=== PATIENT | male | born 1940 | race Caucasian/White ===

== ENCOUNTER → 2020-12-26 07:17 | Outpatient (CLI) | payer MEDICARE, SELFPAY ==
--- NOTE | 2020-12-26 07:23 | CT_ITS ---
STUDY: CT RIGHT LOWER EXTREMITY WITHOUT CONTRAST REASON FOR EXAM: Right knee osteoarthritis, surgical planning. TECHNIQUE: Transaxial CT imaging of the lower extremity was performed. Coronal and sagittal images were reformatted. Individualized dose optimization techniques were used for this CT. COMPARISON: None. FINDINGS: Knee: There are marginal osteophytes and mild joint space narrowing of the medial femorotibial compartment (coronal reconstruction 27). There are marginal osteophytes and moderately severe joint space narrowing of the mesial aspect of the lateral femorotibial compartment (coronal reconstruction 27). There are marginal osteophytes and joint space narrowing of the medial aspect of the patellofemoral compartment (axial image 275). Normal proximal tibiofibular articulation. There is a small joint effusion. The quadriceps tendon is grossly normal. There is an enthesophyte at the superior pole of the patella. The patellar tendon is grossly normal. Normal Hoffa''s fat pad. There is mild vascular calcification. Hip: There is mild subchondral cystic change of the right acetabulum. Otherwise, unremarkable right hip joint. There is prostatic calcification. Ankle: Normal tibiotalar, posterior subtalar and talonavicular articulations. There are small ossicles of the distal aspect of the medial and lateral malleoli. There is a small posterior calcaneal enthesophyte. CT/Extremity Lower without Contra IMPRESSION: Right knee osteoarthritis. Electronically Signed: Joao Arguello MD at 14:47 EDT Tel , Service support ,
== END ==
PROVIDERS: PCP Family Medicine; Visit Provider Specialist
DX: M17.11 Unilateral primary osteoarthritis, right knee (principal); M21.161 Varus deformity, not elsewhere classified, right knee
CPT/HCPCS: 73700

== ENCOUNTER → 2021-01-06 06:27 | Outpatient (CLI) | payer MEDICARE, SELFPAY ==
[2020-12-27 14:24] VITALS: BMI 25.6
--- NOTE | 2021-01-06 06:32 | ECHOD_ITS ---
Reason For Study: ARRHYTHMIA Procedure This was a 2D Doppler, Color Flow transthoracic echocardiogram. Exam performed in department. Left Ventricle Normal LV size. Left ventricular systolic function is normal. The estimated ejection fraction is 60 %. Stage 2 diastolic dysfunction. No regional wall motion abnormalities noted. Right Ventricle Normal RV size. Normal systolic function. Atria Normal left atrium. Normal right atrium. Patent foramen ovale. Mitral Valve Normal mitral valve. Tricuspid Valve Normal tricuspid valve. Mild tricuspid valve insufficiency. Pulmonary artery systolic pressure is 30 mmHg. Aortic Valve Trisinus/trileaflet aortic valve. Mild focal aortic valve calcification. Mild aortic stenosis. Pulmonic Valve Normal pulmonic valve. Great Vessels Normal aortic root. The pulmonary artery is normal size. Normal inferior vena cava. Pericardium/Pleural No pericardial effusion. Medication Performed a rapid injection of agitated mix of 9 cc saline and 1cc air to assess for atrial septal defect. MMode/2D Measurements & Calculations LVIDd: 4.5 cm IVSd: 1.0 cm LVOT diam: 2.0 cm LVIDs: 3.1 cm LVPWd: 1.0 cm RVDd: 3.7 cm FS: 30.9 % LVOT area: 3.1 cm2 Ao root diam: 3.2 cm LAV(MOD-bp): 55.2 ml LVAd ap4: 26.3 cm2 LAV(MOD-bp) Indexed: 31.2 ml/m2 LVLd ap4: 7.3 cm LAV(MOD-sp2): 51.0 ml EDV(MOD-sp4): 80.0 ml LAV(MOD-sp4): 56.1 ml EDV(sp4-el): 80.7 ml LVAs ap4: 15.2 cm2 LVLs ap4: 6.3 cm ESV(MOD-sp4): 30.7 ml ESV(sp4-el): 31.1 ml EF(MOD-sp4): 61.7 % EF(sp4-el): 61.5 % SV(MOD-sp4): 49.3 ml SV(sp4-el): 49.6 ml LA A4 area: 19.8 cm2 LA dimension(2D): 3.5 cm RA A4 area: 16.4 cm2 Time Measurements MV dec time: 0.19 sec Doppler Measurements & Calculations MV E max fernando: 85.3 cm/sec Lat Peak E' Fernando: 9.3 cm/sec Med Peak E' Fernando: 7.9 cm/sec MV A max fernando: 67.0 cm/sec E/E' lat: 9.2 E/E' med: 10.8 MV E/A: 1.3 Ao V2 max: 216.9 cm/sec LV V1 max: 115.4 cm/sec SV(LVOT): 87.0 ml Ao max P.8 mmHg LV V1 max P.3 mmHg Ao V2 mean: 140.4 cm/sec LV V1 mean P.4 mmHg Ao mean P.2 mmHg LV V1 mean: 71.5 cm/sec Ao V2 VTI: 49.8 cm LV V1 VTI: 27.9 cm HECTOR(I,D): 1.7 cm2 HECTOR(V,D): 1.7 cm2 PA V2 max: 127.5 cm/sec TR max fernando: 261.7 cm/sec TR max P.4 mmHg ECHO/Echo Complete Interpretation Summary Normal LV size. Left ventricular systolic function is normal. The estimated ejection fraction is 60 %. Stage 2 diastolic dysfunction. Pulmonary artery systolic pressure is 30 mmHg. Mild aortic stenosis. Ordering Physician: Camilo Panda Referring Physician: CAROLYN MEDINA Performed By: Mariza Saez RDCS
--- NOTE | 2021-01-06 14:52 | STRESSREP ---
Stress Test Report Pharmacologic myocardial perfusion stress test. 80-year-old man with a history of cardiac arrhythmia for preop evaluation. Stress protocol: Resting EKG demonstrates sinus bradycardia with a rate of 52 bpm. Resting blood pressure 106/68 mmHg. 0.4 mg of regadenoson was infused per usual protocol followed by rapid venous saline flush injection continuous EKG monitoring was performed. The maximum heart rate attained was 73 bpm which was 52% of max infected heart rate the maximum workload was 1 metabolic equivalent. At rest there were no ST or T wave changes noted to suggest abnormal flow reserve and at peak infusion nonspecific ST changes were noted with did not meet the criteria for ischemia. No clinical angina was noted. The final blood pressure was 108/60 mmHg. Myocardial perfusion protocol. 11.0 mCi of technetium 99m sestamibi was injected at rest. 0.4 mg of regadenoson was infused per usual protocol. At peak infusion 33.5 mCi of technetium 99m sestamibi was injected stress images were obtained stress and rest images just were reconstructed and compared in the short axis vertical long and horizontal long axis. Gated images were also obtained Perfusion SPECT analysis: Review of the stress images demonstrate normal uptake of tracer noted in all areas of the myocardium. The resting images similarly demonstrate normal uptake of tracer noted in all areas of the myocardium. No areas of reversibility are noted to suggest ischemia and no previous infarct is noted. Gated SPECT analysis: The gated ejection fraction is 69%. Conclusion: Normal pharmacologic myocardial perfusion stress test. Preserved ejection fraction.
== END ==
PROVIDERS: PCP Family Medicine; Referring Provider Internal Medicine Cardiovascular Disease; Visit Provider Internal Medicine Cardiovascular Disease
DX: R94.31 Abnormal electrocardiogram [ECG] [EKG] (principal); Z20.828 Contact with and (suspected) exposure to other viral communicable diseases
CPT/HCPCS: 78452; 87426; 93017; 93306; A9500; C9803; A4216; J2785

== ENCOUNTER 2021-01-11 10:02 | Observation (INO) | payer MEDICARE, SELFPAY ==
--- NOTE | 2020-12-27 21:25 | PCM.HP.BLA ---
History and Physical History and Physical [facility] Patient Name: Bro Weber : 1940 From: PALOMA CONTRERAS PA-C DATE OF SURGERY: 01/11/2021 SCHEDULED PROCEDURE: right total knee arthroplasty HISTORY OF PRESENT ILLNESS: Preoperative history and physical exam was performed on December 26, 2020. This is a 80-year-old male who has had ongoing pain for several years with his right knee. Patient's pain is been intermittent. He has increased pain going up and down stairs. He has difficulty with activities of daily living including shopping. 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 His pain can reach as high as a 6/10. He has increased pain with any twisting type activities. Pain is over the medial aspect of the knee. It occasionally wakes him at night. Patient has attempted conservative measures including previous corticosteroid injections with only 1-2 months of relief. He has been through 2 previous series of Visco supplementation injections with the last series giving him no relief in his symptoms. He has tripped/stumble due to the knee pain. He denies previous surgery on the right knee in the past. He has attempted [id number] Tylenol without any significant relief. After failing conservative measures and discussing all treatment options, the patient does wish to proceed with a right total knee arthroplasty. We are obtaining surgical clearance from the primary care physician Dr. Vamshi Campbell and he has also been referred to garment manufacturer Dr. Panda. Patient on EKG had bradycardia and is currently going to get worked up with echocardiogram and stress test. Depending upon those findings will determine proceeding with surgery. He denies any chest pain, shortness of breath, fevers chills, recent infections. He has medical history pertinent for hyperlipidemia, gastroesophageal reflux disease, stenosis of the left subclavian artery. REVIEW OF SYSTEMS: ROS: Const: Denies change in appetite, fever and weight change. CV: Denies chest pain, heart murmur and irregular heartbeat. Resp: Denies cough, pneumonia, shortness of breath, tuberculosis and wheezing. GI: Denies constipation, diarrhea, heartburn, nausea, rectal itching, bloody stools and vomiting. : Denies incontinence. Musculo: Reports leg swelling and trouble walking, but denies pain and weakness. Skin: Denies Raynaud's, history of shingles and tattoo. Neuro: Denies ambulatory dysfunction, dizziness, numbness/tingling and tremor. Psych: Denies anxiety, insomnia and stress. Demarcus/Lymph: Denies anemia, bleeding/bruising tendency and past transfusion. Reviewed, no changes. PAST MEDICAL HISTORY: Advance Care Plan: Other Directive, LIVING WILL PMH: Medical Problems: Arthritis, Hypercholesterolemia, Acid Reflux Accidents: None Surgical Hx: LT Arm Bypass Anesthesia Complications: None Assistive Devices: Dentures Reviewed and updated. SOCIAL HISTORY: SH: Marital: .Occupation: Retired.Work Status: Retired.Hand Dominance: Right-handed. Personal Habits: Cigarette Use: Former.Smokeless Tobacco: Former user.E-Cigarette Use: Never used.Alcohol: Occasionally.Drug Use: Denies Use.Enjoy Exercising: Never Exercises. Reviewed, no changes. VITALS: Ht: 65 Wt: 150lb Wt k.040 BMI: 25.0 BP: 118/76 Pulse: 66 Resp: 16 T: 97.7 T: 36.5C ALLERGIES: No Known Drug Allergy MEDICATIONS: Aspirin 81 81 mg 1 PO qd, Omeprazole 20 mg take 1 capsule by mouth once daily, Simvastatin 20 mg take 1 tablet by mouth nightly, Vitamin D3 50 mcg (2000 Ut) 1 by mouth every day, Zinc 50 mg 1po qday, Quercetin 250 mg 1po qday PRE-OP EXAM: General appearance:NORMAL Other: Eyes: Conjunctivae and lids: NORMAL Pupils: ERR Ears, Nose, Mouth, and Throat: NORMAL Other: Inspection of lips, teeth and gums: NORMAL Other: Neck: Examination of neck: no masses noted. Respiratory: Assessment of respiratory effort: NORMAL Other: Auscultation of lungs: clear to auscultation no wheezes, rhonchi or rales. Cardiovascular: Auscultation of heart: regular rate and rhythm, no murmurs, gallops or rubs. Exam of carotid arteries: NORMAL Other: Gastrointestinal: Exam of abdomen: soft, nontender, nondistended bowel sounds present. PHYSICAL EXAMINATION: Walks with an antalgic gait. His right knee has mild effusion. There is varus alignment which is partially correctable on exam. Tenderness to palpation along the medial joint line and mild tenderness to palpation along the lateral joint line. Crepitus with range of motion. Range of motion: Lacks 4 of extension to 100 flexion on the right and 0 extension to 120 flexion on the left. Stable to anterior/posterior drawer. Sensation intact to light touch. IMAGING STUDIES: Previous x-rays of the right knee reveal varus alignment with medial joint space narrowing, subchondral sclerosis, osteophyte formation consistent with severe stage IV tricompartmental osteoarthritis with bony erosions of the medial compartment. IMPRESSION: 1. Severe right knee osteoarthritis with varus deformity 2. Hyperlipidemia 3. Gastroesophageal reflux disease 4. Left subclavian artery stenosis 5. Bradycardia PLAN: Dr. Sage Campbell did discuss and review with the patient all treatment options including surgical versus nonsurgical options. Patient does wish to proceed with the above-stated procedure. Potential risks, benefits, and complications of the procedure were discussed in detail including but not limited to , infection, nerve and blood vessel damage, persistent pain, numbness, tingling, paresthesias, blood clot, pulmonary embolism, and requirement for possible further surgery. The patient expressed full understanding and has no further questions for the doctor. Patient does agree to proceed with the above-stated procedure and has signed the surgery consent form. We discussed the current risks associated with COVID 19. This does include the risk of exposure while in the hospital. Patient was reassured local hospitals have low infection rates and are taking all necessary precautions to avoid exposure to patients. In addition, we discussed strategies that can be used to help limit exposure including those that limit the patient's time in the hospital. Also using strategies to limit the patient's need for continued inpatient services after being discharged from the hospital. Patient was notified that we will need to comply with any screening or testing the hospital wishes to perform or that surgery may be delayed for any positive results. This dictation was created using voice recognition software. Phonetic and/or grammatical errors may exist. ___ I have re-examined the patient. There are no clinical changes since date of exam. ___ See progress notes for changes. ___ Dictated on admission Date: Time: Signature:
[2020-12-28 09:50] LABS: Magnesium 2.3 mg/dL (1.6-2.6)
[2021-01-11] VITALS (15 sets, daily range): BP systolic 102–158; BP diastolic 53–108; PULSE 56–88; RESP 16–18; TEMP 35.9–37.2; O2SAT 96–100; BMI 24.7
[2021-01-11] MEDS: Celecoxib 200 MG Capsule 400 MG PO (07:08)
[2021-01-11] MEDS: Lactated Ringers 1,000 ML 75 ML IV (07:08)
[2021-01-11] MEDS: Gabapentin 600 MG Tablet PO (07:09)
[2021-01-11] MEDS: Acetaminophen 500 MG Tablet 1000 MG PO ×3 (07:09→20:55)
[2021-01-11] MEDS: Lactated Ringers 1,000 ML 999 ML IV ×2 (07:09→10:29)
[2021-01-11 08:16] LABS: Bedside Glucose 54 mg/dL (70-110)
[2021-01-11] MEDS: Cefazolin 2 GM in 0.9% Normal Saline 100 ML IV (08:31)
[2021-01-11] MEDS: dexAMETHasone 10 MG/ML Vial IV (09:19)
--- NOTE | 2021-01-11 09:38 | PCM.OPRPT ---
Report of Operation Pre-Operative Diagnosis: Right knee primary osteoarthritis Post-Operative Diagnosis: Right knee primary osteoarthritis Surgery/Procedure Performed:: Right minimally invasive robotic total knee replacement Description of Surgical Findings:: Stable knee with good patella tracking Surgeon: Sage Campbell Type of Anesthesia: Spinal Anesthesiologist: Clayton Gracia Special Medications: 2 g Ancef, 1 g TXA at incision, 1 g TXA closure, 10 mg Decadron, joint cocktail (5 mg Duramorph, 30 mL of 0.5% Ropivicaine, 1000 units of epinephrine, 30 mg of Toradol) Specimen's removed: Bony cuts Estimated Blood Loss (mL): 35 Fluids Replaced: 500 mL crystalloid Description of Procedure: Implants used: 1. [place] size 4 triathlon cruciate retaining distal femoral press-fit component 2. Lali size 5 press-fit tritanium tibial baseplate 3. [place] X3 9 mm CS polyethylene 4. Lali X3 38 mm asymmetric patella Brief history operative indications: 80-year-old M with history of right knee osteoarthritis with radiographic findings with loss of joint space, osteophyte formation and subchondral sclerosis. Failed conservative measures as mentioned in the H&P. Discussion of total knee arthroplasty as well as risk and benefits were discussed the patient including but not limited to blood loss, DVTs, PEs, neurovascular damage, general risk of anesthesia including loss of life, and stiffness or instability were discussed with patient. Patient demonstrated understanding and was able to sign informed consent. Procedure: On the date of procedure patient's right lower extremity was marked in the preoperative area. The patient was then taken back to the operating room where the patient was placed on the table in the supine position. All bony prominences were identified a well-padded. Anesthesia assumed control of the C-spine and airway and remained controlled throughout the remainder of the procedure. A tourniquet was placed on the right upper thigh and the leg was prepped in a sterile fashion. The surgeon then scrubbed at this time .Upon reentering the room right lower extremity was draped in a standard orthopedic fashion. A timeout was then called and everyone agreed upon the side, the site, the procedure to be performed, patient's identity and antibiotics given. Esmarch bandage was used to exsanguinate the extremity and the tourniquet was placed up to 250 mmHg with the knee in flexion. A midline skin incision was made and sharp dissection was taken down through skin subcutaneous tissue and fat. The standard medial parapatellar incision was made and the patella was subluxed laterally. An Appropriate deep MCL release was done and the fat pad was resected. Our attention was then directed to the patella. The patella was everted and a flat resection was made. The knee was then flexed up in 2 femoral pins were placed inside the incision and 2 tibial pins were placed outside the incision in the medial tibia bicortically. Once this was completed the 2 checkpoints in the femur and tibia were placed. Knee was then flexed up and the bony landmarks were registered. Once this was completed knee was taken through range of motion and manually stressed allowing us to a plan for an appropriate tibial cut. The robotic arm was brought into the field sterilely and checkpoint and saw were registered. Based on the patient's deformity the tibial cut was made in 2 degrees of varus. At this time the tensioner was then placed in the joint and ligament tension was checked at 90 degrees and full extension. Based on the patient's ligamentous tension appropriate adjustments were made to the operative plan and ligament releases were done. Once we were happy with our operative plan with balanced flexion and extension gaps our attention was directed to the femur. The robot was brought into the field sterilely and registered. Posterior condylar cuts, anterior chamfer cuts and anterior cuts were appropriately made for a size 4 femur. When these were completed the saws were switched out in the distal femoral and posterior chamfer cuts were made. Protecting the soft tissue throughout this time. A size 5 tibial base plate was selected. the knee was flexed to 90 degrees and the soft tissues and posterior osteophytes were removed from the joint. 40 cc of the periarticular injection was injected into the posterior medial corner of the joint. The appropriate trials were then placed on the femur and tibia. A trial polyethylene was trialed to ensure proper balancing and stability of the knee. The appropriate tibial internal rotation was then marked with a bovie. Our attention was then directed to the patella. The lug holes were drilled and the patella trial was placed. Patellar tracking was checked and deemed appropriate. Once we were happy lug holes were drilled for the femur and trial components were removed. the tibia was subluxed and pinned into place and the keel was punched and drilled appropriately. Final components were verified and opened, and cement was mixed in a vacuum. [employer] Simplex cement was used. The wound was copiously irrigated with normal saline. When the cement was ready the components were impacted into place starting with the tibia, femur and finally cementing the patella. The trial poly component was placed and the knee was placed in full extension. All excess cement was removed in the process. Once the cement had cured the tracking, alignment and balance were verified and a size 9 mm CS polyethylene component was placed. Once the final components were placed a 3-minute dilute Betadine lavage was performed followed by an Irrisept lavage was performed and the wound was copiously irrigated with normal saline solution and the periarticular injection was given. The wound was closed in a layer jaramillo fashion using #1 vicryl interrupted sutures for the arthrotomy, 2-0 interrupted Vicryl suture for the subcuticular layer and kamini for final skin closure. A sterile compressive dressing was then placed. The patient was then awakened from anesthesia, transferred to the [facility] and transferred to the PACU for recovery. Post op plan DVT ppx: ASA 81mg BID, thigh high compression stockings Follow up: in office in 2 weeks for wound check PT: to start POD #0 at hospital, outpatient PT should be arranged. My physician optometry assistant was a vital part of this case. He was important in appropriate retraction during the case, and protection of soft tissues during bony cuts. His intimate knowledge of the case and my steps aided in safe and expedient completion of the procedure as well as appropriate position of the leg during the case. He was also vital in assisting with closure under my direct supervision. Due to the complexity of this case robotic arm was used to assist in the surgery to improve accuracy and clinical outcomes. Complications No intraoperative complications Admit VTE Documentation VTE Present on Admission: No VTE Mechan Device Prophylaxis: SCD's and Thigh High VENKATA Hose VTE Pharm Prophylaxis ordered?: Yes
--- NOTE | 2021-01-11 10:40 | RAD_ITS ---
STUDY: X-RAY - RIGHT KNEE REASON FOR EXAM: Postoperative evaluation of right total knee arthroplasty. TECHNIQUE: 2 view(s) of the knee. COMPARISON: CT images 12/26/2020. FINDINGS: There is a right total knee arthroplasty without evidence of complication. There is postoperative gas in the soft tissues and overlying skin kamini. RAD/Knee 1 or 2 Views IMPRESSION: Uncomplicated right total knee arthroplasty. Electronically Signed: Joao Arguello MD at 11:11 EDT Tel , Service support ,
[2021-01-11] MEDS: Lactated Ringers 1,000 ML 125 ML IV (10:51)
--- NOTE | 2021-01-11 14:04 | PCM.PN.HOSP ---
Documented by User: Eve Linares NP, DEPARTMENT CHAIRPERSON-C 01/11/21 14:16 Subjective Subjective Patient seen and examined. Hospitalist services consulted for medical management. Underwent right total knee replacement. Denies pain currently. States he has a medical history of hyperlipidemia and GERD. Objective Data Objective Data Vital Signs: Vital Signs Temp Pulse Resp BP Pulse Ox 98.3 F 88 18 137/67 H 98 01/11/21 12:47 01/11/21 12:47 01/11/21 12:47 01/11/21 12:47 01/11/21 12:47 Oxygen Flow Rate (L/min) 6 Oxygen Delivery Method Room Air Weight: 153 lb 0.013 oz Body Mass Index (BMI) 24.7 Intake & Output: Intake and Output for Last 24 Hours 01/09/21 01/10/21 01/11/21 23:59 23:59 23:59 Intake Total 3434 / 3434 Balance 3434 / 3434 Lab / Micro Data Labs: Laboratory Results - last 24 hr 01/11/21 06:40: POC Glucose 54 L Micro: Microbiology 12/28/20 08:57 Swab (Method) Nasal Screen MRSA/MSSA - Final Radiography Diagnostic Testing: Radiology Impression Knee X-Ray 01/11/21 10:40 IMPRESSION: Uncomplicated right total knee arthroplasty. Electronically Signed: Joao Arguello MD at 11:11 EDT Tel , Service support , Physical Exam Const alert, oriented x3 and no apparent distress Orientation / Consciousness: awake, oriented to person, oriented to place and oriented to time HEENT normocephalic and moist oral mucous membranes Eyes PERRL, EOMs intact bilaterally and conjunctivae normal Neck no lymphadenopathy Resp normal respiratory effort and clear to auscultation bilaterally Cardio regular rate, regular rhythm and no murmurs Peripheral Pulses: pulses 2+ throughout GI normal to inspection, nondistended, normoactive bowel sounds, non-tender and non-distended Extremity normal to inspection Skin no rashes or lesions noted Skin Narrative: Postop dressing intact. Lesions: no lesions Rashes: no rashes Trauma: no lacerations or abrasions Neuro CN's II-XII intact bilaterally, no focal motor deficits, no sensory deficits noted and deep tendon reflexes 2+ bilaterally Psych mental status grossly normal and affect normal Assessment & Plan Assessment/Plan (1) Hyperlipidemia: PLAN: 1. Right knee osteoarthritis status post right total knee replacement-management per Ortho. PT/OT. As needed pain regimen. 2. Abnormal EKG-noted during preop testing. Underwent stress test which was negative for ischemia, gated ejection fraction 69%. Echocardiogram demonstrated an EF of 60%, stage II diastolic dysfunction, mild aortic stenosis, pulmonary artery systolic pressure 30 mmHg. Cleared by cardiology as outpatient. 3. Hyperlipidemia-continue statin. 4. GERD-continue PPI. DVT prophylaxis-SCDs, pharmacologic prophylaxis per surgery This patient was seen by RUTHY Larson under the supervision of Dr. Hairston. Documented by User: Dr. Caty Hairston MD 01/11/21 15:59 Charges/Coding Visit Charges Office Visits / Consults: [id number] OV L4 Est
--- NOTE | 2021-01-11 14:31 | PCM.PN.HOSP ---
Subjective Subjective Bro Weber is an 80-year-old male who presented to [facility] for an elective minimally invasive right total knee arthroplasty. He had a preoperative stress test that was normal and a preoperative echocardiogram that showed an EF of 60%, stage II diastolic dysfunction, mild aortic stenosis and pulmonary artery systolic pressure of 30 mmHg on 01/06/2021. The patient evidently has been having an ongoing issues with his right knee for several years. The pain was increasing with stairs both a sent and descent and has progressed to the point where he has difficulties with ADLs and IADLs. 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 He did attempted conservative measures with corticosteroid injections, viscosupplementation injections, and [id number] Tylenol for pain relief. After failing conservative measures he elected for a right total knee arthroplasty. Patient states he is feeling well and currently not having any pain. His is at the bedside and is concerned that he will probably overdo it given the fact that he is very active at baseline. Objective Data Objective Data Vital Signs: Vital Signs Temp Pulse Resp BP Pulse Ox 98.3 F 88 18 137/67 H 98 01/11/21 12:47 01/11/21 12:47 01/11/21 12:47 01/11/21 12:47 01/11/21 12:47 Oxygen Flow Rate (L/min) 6 Oxygen Delivery Method Room Air Weight: 69.4 kg Body Mass Index (BMI) 24.7 Intake & Output: Intake and Output for Last 24 Hours 01/09/21 01/10/21 01/11/21 23:59 23:59 23:59 Intake Total 3434 / 3434 Balance 3434 / 3434 Lab / Micro Data Labs: Laboratory Results - last 24 hr 01/11/21 06:40: POC Glucose 54 L Micro: Microbiology 12/28/20 08:57 Swab (Method) Nasal Screen MRSA/MSSA - Final Radiography Diagnostic Testing: Radiology Impression Knee X-Ray 01/11/21 10:40 IMPRESSION: Uncomplicated right total knee arthroplasty. Electronically Signed: Joao Arguello MD at 11:11 EDT Tel , Service support , Physical Exam Const alert, oriented x3, no apparent distress, average body habitus, healthy appearing and well nourished Constitutional Narrative: Elderly white male sitting up in bed, appears much younger than stated age, at bedside, nontoxic-appearing Exam Limitations: no limitations HEENT head/scalp atraumatic and moist oral mucous membranes HEENT Narrative: Dentures in place, Mallampati 2 Head and Scalp: normocephalic Resp normal respiratory effort, no retractions, no use of accessory muscles and clear to auscultation bilaterally Auscultation: Negative for crackles, rales, rhonchi or wheezes Cardio regular rate, regular rhythm, S1 normal heart sound, S2 normal heart sound, no murmurs, no rub, no gallops, no clicks and no JVD GI normal to inspection, nondistended, normoactive bowel sounds, soft to palpation, non-tender and non-distended Extremity no clubbing, cyanosis or edema Extremity Narrative: Right knee with polar ice in place and VENKATA hose on Peripheral Pulses: Yes pulses 2+ throughout Neuro oriented x3, CN's II-XII intact bilaterally, moves all extremities and no focal motor deficits Sensorium / Orientation: awake, alert, oriented to person, oriented to place and oriented to time Speech: speech normal Psych affect normal Psych Narrative: Extremely pleasant Assessment & Plan Assessment/Plan (1) Osteoarthritis of right knee: (2) Hyperlipidemia: (3) Stenosis of left subclavian artery: (4) Mild aortic stenosis: PLAN: Right knee OA status post right minimally invasive total knee arthroplasty -Stop day 0 -Pain management per primary -DVT prophylaxis per primary with aspirin 81 mg twice daily -PT/OT -Continue bowel regimen Hyperlipidemia -Continue home simvastatin GERD -Continue omeprazole Vitamin D deficiency -Continue home vitamin D supplementation Mild aortic stenosis -Follow-up with cardiology as an outpatient -Found on preoperative echocardiogram DVT prophylaxis -Aspirin as noted above -SCDs Charges/Coding Visit Charges Inpatient E&M: 83788 Subs Hosp L2
[2021-01-11] MEDS: Cefazolin 1 GM/50 ML BAG IV (16:43)
[2021-01-11] MEDS: Aspirin 81 MG TAB.CHEW PO (16:44)
[2021-01-11] MEDS: Ensure Surgery 237 ML LIQUID PO (16:44)
[2021-01-11] MEDS: Atorvastatin Calcium 10 MG Tablet PO (20:56)
[2021-01-11] MEDS: Senna/Docusate Sodium 1 Tablet 2 TABLET PO (20:56)
--- NOTE | 2021-01-11 22:35 | PCS.PANDOC ---
PANDEMIC DOCUMENTATION INITIATED: Date: 12/26/2020 Time: 190
[2021-01-12] MEDS: Cefazolin 1 GM/50 ML BAG IV (00:22)
[2021-01-12 00:44] VITALS: BP 143/64; PULSE 59; RESP 18; TEMP 36.6; O2SAT 99
[2021-01-12 00:47] VITALS: BMI 24.7
[2021-01-12 04:47] VITALS: BMI 24.7
[2021-01-12 05:30] VITALS: BP 160/71; PULSE 53; RESP 18; TEMP 36.6; O2SAT 99
[2021-01-12] MEDS: Acetaminophen 500 MG Tablet 1000 MG PO ×2 (05:34→14:00)
[2021-01-12 06:28] LABS: Hematocrit 41.7 % (40-54); Hemoglobin 14.2 g/dL (13.0-16.5); Mean Corp Hgb Conc 34.1 g/dL (32-36); Mean Corpuscular Hgb 32.1 pg (27.0-32.0); Mean Corpuscular Volume 94.1 fL (80-94); Mean Platelet Vol. 10.5 fl (6.2-12.0); Platelet Count 197 K/mm3 (150-450); RBC Distribution Width SD 44.8 fl (35.1-43.9); Red Blood Count 4.43 M/mm3 (4.6-6.2); White Blood Count 14.1 K/mm3 (4.4-11.0)
[2021-01-12 06:53] LABS: Anion Gap 6 (5-15); BUN 17 mg/dL (7-18); BUN/Creat Ratio 20.1 RATIO (10-20); Chloride 107 mmol/L (98-107); Creatinine, Serum 0.84 mg/dL (0.70-1.30); EST Glomerular Filtration Rate 93 mL/min (>60); Est Glom Filt Rate - Afr Amer 112 mL/min (>60); Estimated Creatinine Clearance 63.29 ml/min; Glucose 97 mg/dL (74-106); Sodium Level 140 mmol/L (136-145)
[2021-01-12] MEDS: Cholecalciferol (VIT D3) 25 MCG TABLET (1,000 UNITS) PO (07:26)
[2021-01-12] MEDS: Pantoprazole Sodium 20 MG Tablet PO (07:26)
[2021-01-12] MEDS: Famotidine 20 MG Tablet PO (07:26)
[2021-01-12] MEDS: Aspirin 81 MG TAB.CHEW PO (07:26)
[2021-01-12] MEDS: Ensure Surgery 237 ML LIQUID PO ×2 (07:28→11:49)
[2021-01-12 07:44] VITALS: BP 149/91; PULSE 60; RESP 16; TEMP 37.1; O2SAT 97
[2021-01-12 08:20] VITALS: BP 117/75; PULSE 86; RESP 20; TEMP 36.6; O2SAT 99
--- NOTE | 2021-01-12 09:26 | PN.ORTHO_ITS ---
Subjective Subjective The patient was sitting in bedside chair upon examination. Patient denies any chest pain, shortness of breath, dizziness, lightheadedness, nausea or vomiting, or calf pain. Pain is controlled on medications. No adverse overnight events. Overall patient is doing very well. Plan will be for discharge home today. Objective Data Objective Data Vital Signs: Vital Signs Temp Pulse Resp BP Pulse Ox 97.9 F 86 20 H 117/75 99 01/12/21 08:20 01/12/21 08:20 01/12/21 08:20 01/12/21 08:20 01/12/21 08:20 Oxygen Flow Rate (L/min) 6 Oxygen Delivery Method Room Air Weight: 69.4 kg Body Mass Index (BMI) 24.7 Intake & Output: Intake and Output for Last 24 Hours 01/10/21 01/11/21 01/12/21 23:59 23:59 23:59 Intake Total 5614 / 5614 300 / 300 Output Total 1000 / 1000 500 / 500 Balance 4614 / 4614 -200 / -200 Lab / Micro Data Result Diagrams: 01/12/21 06:00 01/12/21 06:00 Labs: Laboratory Results - last 24 hr 01/12/21 06:00: WBC 14.1 H, RBC 4.43 L, Hgb 14.2, Hct 41.7, MCV 94.1 H, MCH 32.1 H, MCHC 34.1, RDW Std Deviation 44.8 H, RDW Coeff of Curry 13.0, Plt Count 197, MPV 10.5 01/12/21 06:00: Sodium 140, Potassium 4.0, Chloride 107, Carbon Dioxide 27.0, Anion Gap 6, BUN 17, Creatinine 0.84, Estim Creat Clear Calc 63.29, Est GFR (MDRD) Af Amer 112, Est GFR (MDRD) Non-Af 93, BUN/Creatinine Ratio 20.1 H, Glucose 97, Calcium 9.0 Micro: Microbiology 12/28/20 08:57 Swab (Method) Nasal Screen MRSA/MSSA - Final Radiography Diagnostic Testing: Radiology Impression Knee X-Ray 01/11/21 10:40 IMPRESSION: Uncomplicated right total knee arthroplasty. Electronically Signed: Joao Arguello MD at 11:11 EDT Tel , Service support , Physical Exam Narrative Vital signs stable and afebrile. Patient is able to plantarflex and dorsiflex actively. Sensation is intact to light touch to saphenous, sural, superficial and deep pe roneal, and tibial distribution. Dressing is clean dry and intact. Negative Homans bilaterally, negative signs and symptoms of DVT. Const alert, oriented x3 and no apparent distress Assessment & Plan Assessment/Plan (1) Status post total right knee replacement: PLAN: 1. S/P right total knee arthroplasty POD #1 2. Continue Pain Medications: Tylenol, meloxicam, oxycodone 3. DVT Prophylaxis: Take 81 mg aspirin twice daily for 4 weeks postoperatively for DVT prophylaxis 4. PT/OT: Weightbearing as tolerated 5. H & H: 14.2/41.7, asymptomatic. 6. Reactive leukocytosis: Currently 14.1, afebrile. Patient did receive Decadron intraoperatively 7. Continue postoperative medical management per medicine 8. Encouraged Incentive Spirometry 9. Disposition: Plan will be for discharge home this afternoon as long as patient is medically stable, patient tolerates therapy, and pain is well controlled. Patient has outpatient physical therapy established. He will follow-up per postop instructions. Prescriptions will be E scribed to [facility] pharmacy. I have reviewed the [place] Automated Rx Reporting System (OARRS) report for this patient for refill pattern and other prescriber involvement as part of the appropriate surveillance for the provision of acute and chronic controlled medications. The report was requested and reviewed on the date of this entry and was considered in the prescribing process.
--- NOTE | 2021-01-12 09:32 | PCM.DC ---
Discharge Instructions Diet Discharge Diet: No restrictions Activity Discharge Activity: May Not Drive (while taking narcotic pain medications.) May shower in (days): 1 (Please turn dressing away from water. Okay to get wet as long as dressing is intact to skin.) Ice area for (Minutes): 20 (Every 1-2 hours while awake. Please place barrier between the skin and ice pack.) Weight Bearing Status: Weight bearing as tolerated Keep extremity elevated above heart level: Operative Extremity Dressing / Incision Call your doctor if your incision/area has: Continuous Slow Oozing, Sudden Increased Bleeding, Increased Pain/ Swelling, Increased Redness and Foul Smelling Discharge Call your doctor if you observe: Fever of 101 or Higher, Coldness, Increased Pain, Numbness or Tingling, Change in Color, Shortness of breath, Chest pain, Calf discomfort and Uncontrolled pain Remove Dressing in: 4 days (Okay to remove dressing on January 16, 2021) Additional Dressing/Incision Instructions:: Follow [facility] Post-op Instructions. Once postoperative dressing has been removed only use gentle soap and water over the incision. Do not use any ointments, Neosporin, salves, alcohol pads over the incision for 6 weeks postoperatively. Do not submerge underwater for 6 weeks postoperatively. Continue with VENKATA hose/elastic stockings for 2 weeks postoperatively. May remove at nighttime but needs to be placed back on the leg during the day. Do NOT use alcohol with narcotic pain medication. Do NOT make important decisions while taking narcotic medication. If you have problems with taking your medication (rash, itching, nausea, etc.) call the office at once. Follow Up Care Test Results: Test results from this visit will be discussed in further detail at your follow-up appointment, if applicable. Discharge Plan Admission Admit Date/Time: 01/11/21 10:02 Attending Provider: Esteban Hoffman Primary Care Provider: Vamshi Campbell Consulting Providers: Caty Hariston Discharge Orders/Prescriptions Prescriptions: New acetaminophen 500 mg Tablet 1,000 mg PO Q8 Qty: 100 RF: 0 aspirin 81 mg Tablet,Chewable 81 mg PO BIDCM Qty: 60 RF: 0 meloxicam 7.5 mg Tablet 7.5 mg PO BID Qty: 60 RF: 0 oxycodone 5 mg Tablet 5 - 10 mg PO Q4H PRN PRN (Reason: Pain Score 4-10) 5 Days Qty: 48 RF: 0 sennosides-docusate sodium [Stool Softener-Stimulant Laxat] 8.6-50 mg Tablet 2 tab PO BID Qty: 14 RF: 0 Continued omeprazole 20 mg capsule,delayed release(DR/EC) 20 mg PO DAILY RF: 0 simvastatin 20 mg tablet 20 mg PO QHS RF: 0 zinc 50 mg tablet 50 mg PO DAILY RF: 0 cholecalciferol (vitamin D3) 25 mcg (1,000 unit) capsule 25 mcg PO DAILY RF: 0 Quercetin 1,000 mg PO/SL DAILY RF: 0 Referrals / Follow Up: physical,therapy [Other] - 01/17/21 9:00 am Vamshi Campbell MD [Primary Care Provider] - Serge Grimes PA-C [PHYSICIAN [facility]O ACCOMPANIST] - 01/26/21 1:45 pm Disposition Disposition (needs filled in before D/C Order can be placed): Home, Self Care
--- NOTE | 2021-01-12 11:49 | PCM.PN.HOSP ---
Documented by User: Klaus YEAGER 01/12/21 11:56 Subjective Subjective Patient is an 80-year-old male comfortably resting in a chair, alert and orient x3. Patient denies any progression of symptoms in the past 24 hours. Denies chest pain, shortness of breath, palpitations, hemoptysis, sputum production, fever, chills, N/V/D. Objective Data Objective Data Vital Signs: Vital Signs Temp Pulse Resp BP Pulse Ox 97.9 F 86 20 H 117/75 99 01/12/21 08:20 01/12/21 08:20 01/12/21 08:20 01/12/21 08:20 01/12/21 08:20 Oxygen Flow Rate (L/min) 6 Oxygen Delivery Method Room Air Weight: 153 lb 0.013 oz Body Mass Index (BMI) 24.7 Intake & Output: Intake and Output for Last 24 Hours 01/10/21 01/11/21 01/12/21 23:59 23:59 23:59 Intake Total 5614 / 5614 300 / 300 Output Total 1000 / 1000 500 / 500 Balance 4614 / 4614 -200 / -200 Lab / Micro Data Result Diagrams: 01/12/21 06:00 01/12/21 06:00 Labs: Laboratory Results - last 24 hr 01/12/21 06:00: WBC 14.1 H, RBC 4.43 L, Hgb 14.2, Hct 41.7, MCV 94.1 H, MCH 32.1 H, MCHC 34.1, RDW Std Deviation 44.8 H, RDW Coeff of Curry 13.0, Plt Count 197, MPV 10.5 01/12/21 06:00: Sodium 140, Potassium 4.0, Chloride 107, Carbon Dioxide 27.0, Anion Gap 6, BUN 17, Creatinine 0.84, Estim Creat Clear Calc 63.29, Est GFR (MDRD) Af Amer 112, Est GFR (MDRD) Non-Af 93, BUN/Creatinine Ratio 20.1 H, Glucose 97, Calcium 9.0 Micro: Microbiology 12/28/20 08:57 Swab (Method) Nasal Screen MRSA/MSSA - Final Physical Exam Const alert, oriented x3 and no apparent distress HEENT head/scalp atraumatic and moist oral mucous membranes Eyes PERRL, EOMs intact bilaterally and conjunctivae normal Neck no lymphadenopathy, supple and no JVD Resp normal respiratory effort, no retractions, no use of accessory muscles and clear to auscultation bilaterally Cardio regular rate, regular rhythm, no murmurs and no JVD GI normal to inspection, nondistended, normoactive bowel sounds, soft to palpation and non-tender Skin no rashes or lesions noted, no wounds and skin turgor normal Neuro CN's II-XII intact bilaterally Psych affect normal Assessment & Plan Assessment/Plan (1) Osteoarthritis of right knee: (2) Status post total right knee replacement: PLAN: Patient is an 80-year-old male who comes to the hospital medicine service on consult from the orthopedics department status post right total knee arthroplasty. 1) hyperlipidemia Continue statin. 2) GERD Continue PPI. 3) vitamin D deficiency Continue home vitamin D supplementation. 4) mild aortic stenosis Found on preoperative echocardiogram, follow-up with cardiology as an outpatient. 5) right knee osteoarthritis Status post right minimally invasive total knee arthroplasty day 2. Management per orthopedic service. DVT prophylaxis - SCDs Patient seen by Klaus Rios PA-C, under the supervision of Dr. Hoffman. Documented by User: Dr. Esteban Hoffman MD 01/12/21 13:26 Objective Data Lab / Micro Data Result Diagrams: 01/12/21 06:00 01/12/21 06:00 Charges/Coding Addendum Addendum: Dr. Hoffman: I personally reviewed the chart and examined the patient, and agree with the above findings. 80-year-old male status post elective right total knee replacement. Doing well, he does have a reactive leukocytosis but otherwise is doing okay. Vital signs are unremarkable and he is able to restart all of his home medications on discharge. He is okay for discharge from medical standpoint today and recommend follow-up with his PCP in 3 to 5 days. Visit Charges OBSV E&M: 37049 Subsequent observation care L2
--- NOTE | 2021-01-12 12:17 | CASEMGMT ---
MONET BLACKWELL Assessment: Face to Face with pt for initial transition planning/care coordination assessment. RN RISHI introduced self and role at [facility], pt voices understanding and consents to assessment. Pt is A/O x4 and answers all questions appropriately at this time. Pt sitting up in chair ready to eat lunch in no distress. Pt in good spirits and very pleasant. Care providers, pharmacy, and demographics verified/updated. Admitting Dx: R Total Knee with Paolo PCP:Roslyn Campbell Specialists:marcos Campbell Preferred Pharmacy: [facility] Insurance: [facility] Prescription Benefit: yes LW/HPOA: Pt states he has a LW/DPOA but it was done so long ago he is unsure who his DPOA is. 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 He is aware that if he would like to bring it in, it can be scanned into his chart. LNOK: Jennifer Weber, Living Arrangements: Pt lives with in a duplex with 3 steps with a rail to enter the home. Pt has 6 steps then to go up to main level. Pt reports he was I in ADL's and denies concerns at home. Transportation: Pt states he drives self and denies concerns with transportation. Pt is able to transport pt to medical appts until pt able to drive. DME/HHC/SNF: Pt has a walker and a cane at home. He denies previous HHC or SNF stays. Pt states no concerns with going home at time of dc. Pt has outpt therapy set up with [facility]. Pt 12 year old grandson is coming to stay with him. Pt states no further concerns/needs. CM to follow. Advised pt to ask CM if any further question/concerns/needs arise, voices understanding. Pt Goal: Home with outpt therapy Plan: Home with outpt therapy
[2021-01-12 13:45] VITALS: BP 112/61; PULSE 70; RESP 40; TEMP 36.8; O2SAT 99
== END 2021-01-12 14:38 | disposition home or self-care (01) ==
LOC: SDC 11:01 → MS3 11:01
PROVIDERS: Anesthesiology; Admitting Provider Specialist; PCP Family Medicine; Referring Provider Specialist; Visit Provider Family Medicine
PROC: 0SRC0JZ Replacement of Right Knee Joint with Synthetic Substitute, Open Approach (ICD-10-PCS; CPT 27447; principal; 2021-01-11 08:30)
DX: M17.11 Unilateral primary osteoarthritis, right knee (principal); R00.1 Bradycardia, unspecified; E78.5 Hyperlipidemia, unspecified; M21.161 Varus deformity, not elsewhere classified, right knee; K21.9 Gastro-esophageal reflux disease without esophagitis; Z79.899 Other long term (current) drug therapy; Z87.891 Personal history of nicotine dependence; E55.9 Vitamin D deficiency, unspecified; I35.0 Nonrheumatic aortic (valve) stenosis
CPT/HCPCS: 01402; 27447; S2900; 36415; 73560; 80048; 82962; 83735; 85027; 87077; 87081; 96365; 96366; 97110; 97162; 97166; 97530; 97535; 99218; 99251; C1776; J7120; G0378; G0463; J2405